=== PATIENT | male | born 1995 | race Caucasian/White ===

== ENCOUNTER 2018-03-27 12:34 | Emergency (ER) | payer OTHER, BC ==
[2018-03-27 14:25] VITALS: BP 128/71
--- NOTE | 2018-03-27 16:08 | UC ---
Respiratory Complaint HPI - HPI Summary HPI Summary: 1 WEEK OF INTERMITTENT DRY COUGH. NO OTHER SX. NO FEVER, CONGESTION, ST, EAR PAIN. - History of Current Complaint Chief Complaint: UCRespiratory Stated Complaint: COUGH Time Seen by Provider: 03/27/18 14:04 Hx Obtained From: Patient Onset/Duration: Gradual Onset, Lasting Days, Still Present Severity Initially: Mild Severity Currently: Mild Pain Intensity: 0 Pain Scale Used: 0-10 Numeric Character: Cough: Nonproductive Aggravating Factors: Nothing Alleviating Factors: Nothing Associated Signs And Symptoms: Negative: Dyspnea, Fever, Wheezing, URI, Nasal Congestion, Hoarseness, Sinus Discomfort - Allergies/Home Medications Allergies/Adverse Reactions: Allergies Allergy/AdvReac Type Severity Reaction Status Date / Time shellfish derived Allergy Unknown Verified 03/27/18 14:17 Reaction Details Home Medications: Home Medications Guaifen/Phenyleph/Acetaminophn [Mucinex Sinus-Max Severe Cplt] 1 tab PO BID 08/09 [History Confirmed 03/27/18] PMH/Surg Hx/FS Hx/Imm Hx Previously Healthy: Yes - Surgical History Surgical History: None - Family History Known Family History: Negative: Hypertension - Social History Alcohol Use: Weekly Alcohol Amount: 1-2 Substance Use Type: None Smoking Status (MU): Never Smoked Tobacco Review of Systems Constitutional: Negative ENT: Negative Respiratory: Cough Cardiovascular: Negative Gastrointestinal: Negative All Other Systems Reviewed And Are Negative: Yes Physical Exam Triage Information Reviewed: Yes Appearance: Well-Appearing, No Pain Distress, Well-Nourished Vital Signs: Initial Vital Signs Temp 98.3 F 03/27/18 14:19 Pulse 85 03/27/18 14:19 Resp 18 03/27/18 14:19 BP 128/71 03/27/18 14:19 Pulse Ox 100 03/27/18 14:19 Vital Signs Reviewed: Yes Eyes: Positive: Conjunctiva Clear ENT: Positive: Hearing grossly normal, Pharynx normal, TMs normal Neck: Positive: Supple, Nontender, No Lymphadenopathy Respiratory Exam: Normal Cardiovascular Exam: Normal Abdomen Description: Positive: Nontender, Soft Musculoskeletal: Positive: No Edema Neurological: Positive: Alert Psychological: Positive: Age Appropriate Behavior Skin: Negative: rashes UC Diagnostic Evaluation - Laboratory O2 Sat by Pulse Oximetry: 100 Respiratory Course/Dx - Course Course Of Treatment: PT COMPLAINS ONLY OF COUGH. NO OTHER SX. OF NOTE - PT DID NOT COUGH AT ALL DURING ENCOUNTER. EXAM NORMAL. NO INDICATION FOR ABX AT PRESENT. OFFERED A SHORT COURSE OF STEROIDS TO HELP WITH AIRWAY INFLAMMATION. PT DECLINED. ADVISED TO SEEK RE-EVALUATION IF COUGH IS NOT IMPROVING OVER THE NEXT COUPLE OF WEEKS. - Differential Dx/Diagnosis Provider Diagnoses: ACUTE COUGH Discharge - Sign-Out/Discharge Documenting (check all that apply): Patient Departure All imaging exams completed and their final reports reviewed: No Studies - Discharge Plan Condition: Stable Disposition: HOME Patient Education Materials: Acute Cough (ED) Referrals: No Primary Care Phys,NOPCP [Primary Care Provider] - Additional Instructions: YOUR SYMPTOMS ARE LIKELY VIRALLY MEDIATED AND SHOULD RESOLVE ON THEIR OWN WITH TIME. NO INDICATION FOR ANTIBIOTICS AT PRESENT. REST, HYDRATE, OTC MEDS NEEDED. SEEK FOLLOW-UP IF YOU ARE NOT IMPROVING OVER THE NEXT COUPLE OF WEEKS. CALL THE NUMBER BELOW FOR ASSISTANCE IN ESTABLISHING WITH A PCP An additional resource available to assist in finding the appropriate physician for your health care needs is [facility] ([facility]). You may contact them by calling [phone]. - Billing Disposition and Condition Condition: STABLE Disposition: Home
== END 2018-03-27 14:57 | disposition home or self-care (01) ==
LOC: UCCORT 12:34
DX: R05 Cough (principal); Z91.013 Allergy to seafood
CPT/HCPCS: 99201; G0463

== ENCOUNTER 2018-04-01 09:45 | Emergency (ER) | payer OTHER, BC ==
[2018-04-01 11:24] VITALS: BP 131/72
--- NOTE | 2018-04-01 11:36 | UC ---
Eye Complaint HPI - HPI Summary HPI Summary: Pt presents with c/o right eye redness and discharge X 1 day. Pt is concerned about "pink eye". - History of Current Complaint Chief Complaint: UCEye Stated Complaint: BILATERAL EYE COMPLAINT Time Seen by Provider: 04/01/18 11:25 Hx Obtained From: Patient Onset/Duration: Sudden Onset, Lasting Days, Still Present Timing: Constant Severity Initially: Mild Severity Currently: Mild Pain Intensity: 0 Aggravating Factor(s): Nothing Alleviating Factor(s): Nothing Associated Signs And Symptoms: Positive: Drainage (Clear), Drainage (Purulent) - Risk Factors Penetrating Injury Risk Factor: Negative Acute Glaucoma Risk Factors: Negative - Allergies/Home Medications Allergies/Adverse Reactions: Allergies Allergy/AdvReac Type Severity Reaction Status Date / Time shellfish derived Allergy Unknown Verified 04/01/18 11:20 Reaction Details Home Medications: Home Medications Dextromethorphan Hb/Doxylamine [Night Time Cough Liquid] 1 liq PO ONCE PRN 04/01 [History Confirmed 04/01/18] PMH/Surg Hx/FS Hx/Imm Hx Previously Healthy: Yes - Surgical History Surgical History: None - Family History Known Family History: Negative: Hypertension - Social History Occupation: Student [employer] Lives: Dormitory/Roommates Alcohol Use: Weekly Alcohol Amount: 1-2 Substance Use Type: None Smoking Status (MU): Never Smoked Tobacco Have You Smoked in the Last Year: No - Immunization History Vaccination Up to Date: Yes Review of Systems All Other Systems Reviewed And Are Negative: Yes Constitutional: Positive: Negative Skin: Positive: Negative Eyes: Positive: Drainage, Eye Redness ENT: Positive: Negative Respiratory: Positive: Negative Cardiovascular: Positive: Negative Gastrointestinal: Positive: Negative Genitourinary: Positive: Negative Motor: Positive: Negative Neurovascular: Positive: Negative Musculoskeletal: Positive: Negative Neurological: Positive: Negative Psychological: Positive: Negative Is Patient Immunocompromised?: No Physical Exam Triage Information Reviewed: Yes Appearance: Well-Appearing Vital Signs: Initial Vital Signs Temp 97.9 F 04/01/18 11:21 Pulse 64 04/01/18 11:21 Resp 15 04/01/18 11:21 BP 131/72 04/01/18 11:21 Pulse Ox 99 04/01/18 11:21 Vital Signs Reviewed: Yes Eyes: Positive: Conjunctiva Inflamed, Discharge ENT Exam: Normal Dental Exam: Normal Neck exam: Normal Respiratory Exam: Normal Cardiovascular Exam: Normal Musculoskeletal Exam: Normal Neurological Exam: Normal Psychological Exam: Normal Skin Exam: Normal Eye Complaint Course/Dx - Differential Dx/Diagnosis Differential Diagnosis/HQI/PQRI: Conjunctivitis Provider Diagnoses: conjunctivitis right eye Discharge - Sign-Out/Discharge Documenting (check all that apply): Patient Departure All imaging exams completed and their final reports reviewed: No Studies - Discharge Plan Condition: Stable Disposition: HOME Prescriptions: Polymyx/Trimethoprim OPTH* [Polytrim OPHTH*] 2 drop RIGHT EYE Q8H 7 Days #1 btl Patient Education Materials: Viral Syndrome (ED), Conjunctivitis (ED) Referrals: [facility] [Outside] - If Needed No Primary Care Phys,NOPCP [Primary Care Provider] - - Billing Disposition and Condition Condition: STABLE Disposition: Home
== END 2018-04-01 11:46 | disposition home or self-care (01) ==
LOC: UCCORT 09:45
DX: H10.9 Unspecified conjunctivitis (principal); Z91.013 Allergy to seafood
CPT/HCPCS: 99212; G0463